=== PATIENT | male | born 2005 | race Caucasian/White ===

== ENCOUNTER 2024-04-02 09:07 | Emergency (ER) | payer OTHER, SELFPAY ==
[2024-04-02 09:23] VITALS: BMI 43.3
[2024-04-02] MEDS: TET/DIPHTH/PERT-ADULT 0.5ML SYRINGE 0.5 ML IM (09:35)
[2024-04-02 09:43] VITALS: BP 0/0; PULSE 0; RESP 0; TEMP -17.7; TEMP 0
[2024-04-02 10:26] VITALS: BMI 43.3
== END 2024-04-02 09:44 | disposition home or self-care (01) ==
PROVIDERS: Emergency Provider Nurse Practitioner Family; PCP Nurse Practitioner Family
DX: Z23 Encounter for immunization (principal)
CPT/HCPCS: 90471; 90715; 99212; G0463